=== PATIENT | male | born 1950 ===

== ENCOUNTER → 2017-09-10 | Outpatient (CLI) | payer MEDICARE | LOC: GMAH 12:10 | PROVIDERS: ATTEND Family Medicine | DX: E78.2 Mixed hyperlipidemia (principal); Z12.5 Encounter for screening for malignant neoplasm of prostate | CPT/HCPCS: 84443; 84550; G0103 ==

== ENCOUNTER → 2018-09-16 | Outpatient (CLI) | payer MEDICARE | LOC: GMAH 10:42 | PROVIDERS: ATTEND Family Medicine | DX: E78.2 Mixed hyperlipidemia (principal); Z12.5 Encounter for screening for malignant neoplasm of prostate | CPT/HCPCS: 84443; 84550; G0103 ==